=== PATIENT | female | born 1980 | race Caucasian/White ===

== ENCOUNTER 2017-06-29 11:06 | Emergency (ER) | payer SELFPAY ==
[2017-06-29 11:23] LABS: URINE HCG POC HCG NEGATIVE (Negative)
== END 2017-06-29 13:00 | disposition home or self-care (01) ==
LOC: ER 11:06
DX: S06.0X1A Concussion with loss of consciousness of 30 minutes or less, initial encounter (principal); S00.03XA Contusion of scalp, initial encounter; Z88.8 Allergy status to other drugs, medicaments and biological substances; V09.9XXA Pedestrian injured in unspecified transport accident, initial encounter; Y93.39 Activity, other involving climbing, rappelling and jumping off; Y92.89 Other specified places as the place of occurrence of the external cause; Y99.8 Other external cause status
CPT/HCPCS: 70450; 72125; 81025; 99284-25

== ENCOUNTER 2017-07-02 19:59 | Emergency (ER) | payer SELFPAY ==
[2017-07-02] MEDS: KETOROLAC 30 MG/ML INJ. IV ×2 (21:06)
[2017-07-02] MEDS: ONDANSETRON PF 4 MG/2 ML VIAL. IV ×2 (21:06)
[2017-07-02] MEDS: IV NORMAL SALINE 1000ML BAG 1,000 ML IV ×2 (21:07)
[2017-07-03 05:21] LABS: AGAP ISTAT 15 mmol/L (6-14); BUN ISTAT 11 mg/dL (8-26); CHLORIDE ISTAT 105 mmol/L (98-110); CREATININE ISTAT 0.8 mg/dL (0.5-1.4); GLUCOSE ISTAT 93 mg/dL (70-99); HEMATOCRIT ISTAT 32 % (36-40); HEMOGLOBIN ISTAT 10.9 g/dL (12-15); ION CA ISTAT 1.23 mmol/L (1.13-1.32); SODIUM ISTAT 141 mmol/L (135-145); TOT CO2 ISTAT 26 mmol/L (23-32)
== END 2017-07-02 22:10 | disposition home or self-care (01) ==
LOC: ER 19:59
DX: F07.81 Postconcussional syndrome (principal); R51 Headache; G43.909 Migraine, unspecified, not intractable, without status migrainosus; F12.10 Cannabis abuse, uncomplicated; Z88.8 Allergy status to other drugs, medicaments and biological substances
CPT/HCPCS: 80047; 85014; 85018; 96374; 96375; 99284-25; J1885; J2405; J7030

== ENCOUNTER 2017-08-26 18:56 | Emergency (ER) | payer SELFPAY ==
[2017-08-26] MEDS: HYDROcodone/APAP 5/325MG 1 TAB TABLET PO (20:05)
== END 2017-08-26 21:12 | disposition home or self-care (01) ==
LOC: ER 18:56
DX: S83.91XA Sprain of unspecified site of right knee, initial encounter (principal); G43.909 Migraine, unspecified, not intractable, without status migrainosus; F12.10 Cannabis abuse, uncomplicated; Z88.5 Allergy status to narcotic agent; W01.0XXA Fall on same level from slipping, tripping and stumbling without subsequent striking against object, initial encounter; Y93.01 Activity, walking, marching and hiking; Y99.8 Other external cause status; Y92.830 Public park as the place of occurrence of the external cause
CPT/HCPCS: 29505; 73564; 99284-25

== ENCOUNTER 2017-09-02 20:16 | Emergency (ER) | payer SELFPAY ==
[2017-09-02] MEDS: HYDROcodone/APAP 5/325MG 1 TAB TABLET PO (21:03)
== END 2017-09-02 22:31 | disposition home or self-care (01) ==
LOC: ER 20:16
DX: S63.92XA Sprain of unspecified part of left wrist and hand, initial encounter (principal); Z88.5 Allergy status to narcotic agent; W18.2XXA Fall in (into) shower or empty bathtub, initial encounter; Y93.E1 Activity, personal bathing and showering; Y99.8 Other external cause status; Y92.89 Other specified places as the place of occurrence of the external cause
CPT/HCPCS: 29125; 73110; 73130; 99284-25